=== PATIENT | female | born 1990 | race Caucasian/White ===

== ENCOUNTER 2018-10-23 16:32 | Emergency (ER) | payer OTHER ==
[2018-10-23] MEDS: KETOROLAC TROMETHAMINE 10 MG TAB PO (18:41)
== END 2018-10-23 19:50 | disposition home or self-care (01) ==
LOC: M ED 16:32
DX: M76.891 Other specified enthesopathies of right lower limb, excluding foot (principal); M06.9 Rheumatoid arthritis, unspecified; Z79.899 Other long term (current) drug therapy; Z79.3 Long term (current) use of hormonal contraceptives; Z88.2 Allergy status to sulfonamides
CPT/HCPCS: 73502